=== PATIENT | male | born 1965 | race Caucasian/White ===

== ENCOUNTER 2023-09-27 13:42 | Emergency (ER) | payer MEDICAID, SELFPAY ==
[2023-09-27 13:46] VITALS: BP 154/89; PULSE 80; RESP 18; TEMP 36.9; O2SAT 97
--- NOTE | 2023-09-27 14:00 | DI.RAD_ITS ---
Exam(s) XR FOOT LT COMPLETE EXAM: XR FOOT LT COMPLETE CLINICAL HISTORY: Foot pain status post trauma. TECHNIQUE: 2D digital imaging was performed. COMPARISON: No exams were available for comparison FINDINGS: 3 views There is no evidence of fracture or diastasis of the Lisfranc joint. No radiopaque foreign bodies. Great toe metatarsophalangeal joint appears unremarkable. There are no osseous lesions and no erosio ns evident. No pes planus. Small inferior calcaneal spur noted as is an enthesophyte on the posteri or calcaneus Achilles insertion site. IMPRESSION: No acute osseous findings in the foot DATA REPOSITORY: RADIATION DOSE DELIVERED:
--- NOTE | 2023-09-27 15:05 | ED.GENADUL_ITS ---
Discharge Plan Disposition Patient Disposition: Home Discharge Details Clinical Impression: Traumatic ecchymosis of left foot Primary Care Provider: Unknown,Unknown ED Provider: Pierre Tam Home Meds and New Rx's Prescriptions: Continued levothyroxine [Euthyrox] 75 mcg tablet 75 mcg PO DAILY losartan [Cozaar] 100 mg tablet 100 mg PO DAILY citalopram 40 mg tablet 40 mg PO DAILY Ozempic 2 mg/dose (8 mg/3 mL) pen injector 0.25 mg subcut QWEEK Rx Instructions: for 4 weeks Discharge Instructions Instructions: Minor Contusion ED Additional Instructions: You are seen in the emergency department for your foot pain. Your x-ray showed no sign of any fractures. You are receiving a hard soled boot which she should wear to keep your foot time to heal. Please rest your foot for the next several days. Please ice your foot for 20 minutes on 20 minutes off while you are awake. Please return to the emergency department as we discussed if you cannot feel your foot if you cannot move your toes or if you develop any sudden worsening pain. Otherwise please follow-up with your primary care provider. If you have worsening pain you may or may not benefit from a CAT scan or an MRI which are more sensitive tests to detect for fractures. For your pain please take medications as follows: 1. Take acetaminophen (Tylenol), 1,000 mg (two 500 mg tabs) every 6 hours [2. Take ibuprofen (Advil), 400 mg every 6 hours.] Discharge Data Discharge Date/Time-TO BE ENTERED AT DEPARTURE: 09/27/23 15:21 HPI General Date/Time Provider Initiated Documentation: 09/27/23 14:10 . HPI Narrative: MDM This is an overall very well-appearing normothermic and not tachycardic 58-year-old male with left foot traumatic ecchymosis but plain films negative for any acute osseous abnormalities for which patient will receive a walking boot and empiric trial of discharge with expectant outpatient management. No pain out of proportion to suggest necrotizing soft tissue infection. No lacerations to suggest benefit from tetanus immunization. Given the patient is able to bear weight with minimal pain I did not feel that he required more sensitive test for fracture such as CT or MRI. No midfoot instability to suggest Lisfranc injury. No lateral foot tenderness to suggest Renteria fracture. No calf tenderness to suggest DVT. No erythema to suggest cellulitis. No fluctuance to suggest abscess. No warmth to suggest gouty arthritis. Good range of motion in left lower extremity so I am not suspicious for gout. Left foot warm well-perfused with less than 2-second capillary refill so I am not concerned for critical limb ischemia so I do not feel that the patient required a CT angiogram of his left lower extremity. Patient and I discussed that he should rest his foot for the next several days. I advised ice for 20 minutes on 20 minutes off while awake. I also advised elevation and a walking boot with weightbearing as tolerated. I advised that if his pain worsened or did not improve significantly by the end of the week that he should follow-up with his primary care provider as he may or may not benefit from a CT or MRI to increase sensitivity for fracture. Patient is not a diabetic so my suspicion is low for peripheral neuropathy. I advised ED return for any worsening pain any inability to move his foot or any calf tenderness which could represent a DVT. He understood his return indications. Chronic conditions affecting the care of the patient: Hypertension History obtained from an outside historian: N/A External record review: N/A Medications: Acetaminophen ibuprofen Social determinants of health affecting disposition: N/A Management discussed with: N/A Treatment/interventions considered: N/A Response to therapies provided: N/A HPI This is a 58-year-old smoker with a history of hypertension but not diabetes arrived to emergency department via private vehicle in setting of left foot pain. Patient was reportedly cleaning out his mother's house yesterday afternoon. He inadvertently dropped a mirror on his left foot while he was wearing sneakers. He had immediate pain. He has been able to walk and move his toes. He is concerned about the possibility of fracture. He denies anticoagulation. He did not fall or hit his head. He denies routine ethanol. He has not taken any oral analgesia today. Exam General: Well-appearing in no acute distress speaking in complete sentences. Head: Normocephalic, atraumatic. Eye: Extraocular eye movements intact. No conjunctival injection. No scleral icterus. Ear, nose, mouth, throat: Grossly normal inspection. Normal voice, handling secretions normally. Neck: Trachea midline. Cardiovascular: Well-perfused distal extremities. Respiratory: Nonlabored respiration. Gastrointestinal: Nondistended abdomen. Musculoskeletal: Left lower extremity with no obvious deformities. Left calf nontender. Left foot with mild diffuse ecchymosis. No lacerations. Cap refill less than 2 seconds in the left toes. 2+ left PT and DP pulses. Sensation motor function intact in the left foot with 4-5 strength in dorsi and plantarflexion limited secondarily to pain. Diffuse forefoot tenderness. No midfoot instability. No lateral foot tenderness. Photo of left foot compared to right as follows: Skin: Normal for age and race, grossly normal temperature and turgor. No acute rash. Neurologic: Alert and appropriate, no apparent acute deficits. Psychiatric: Mood and manner are appropriate. Grooming and personal hygiene are appropriate. Related Data Home Medications ?Medication ?Instructions ?Recorded ?Confirmed citalopram 40 mg tablet 40 mg PO DAILY 09/27/23 09/27/23 levothyroxine 75 mcg tablet 75 mcg PO DAILY 09/27/23 09/27/23 (Euthyrox) losartan 100 mg tablet (Cozaar) 100 mg PO DAILY 09/27/23 09/27/23 semaglutide 2 mg/dose (8 mg/3 mL) 0.25 mg subcut QWEEK 09/27/23 09/27/23 subcutaneous pen injector (Ozempic) Allergies Allergy/AdvReac Type Severity Reaction Status Date / Time No Known Allergies Allergy Unverified 09/27/23 13:48 General Stated Complaint: Orthopedic LEONIDAS: 4 Course Vital Signs Vital signs: Vital Signs Temperature 36.9 C 09/27/23 13:46 Pulse 80 09/27/23 13:46 Respiratory Rate 18 09/27/23 13:46 Blood Pressure 154/89 H 09/27/23 13:46 Pulse Oximetry 97 09/27/23 13:46 Temperature 36.9 C 09/27/23 13:46 Pulse 80 09/27/23 13:46 Respiratory Rate 18 09/27/23 13:46 Respiratory Effort Normal, Non-Labored 09/27/23 14:59 Blood Pressure 154/89 H 09/27/23 13:46 Blood Pressure Position Sitting 09/27/23 13:46 Pulse Oximetry 97 09/27/23 13:46 Oxygen Delivery Method Room Air 09/27/23 13:46 Oxygen Flow Rate 0 09/27/23 13:46 Medical Decision Making Quality:SDOH Health Related Social Needs: 2 No Data to Display PFSH All Active Problems (Updated 09/27/23 @ 15:05 by Pierre Tam MD) Traumatic ecchymosis of left foot (Acute) Social History Smoking/Tobacco Use Status: Never Smoking risk assessment performed?: Yes Alcohol Intake: never Drug use: Never Substance use type: does not use
[2023-09-27 15:21] VITALS: BP 169/82; PULSE 86; RESP 18; O2SAT 94
[2023-09-27] MEDS: Acetaminophen 500 MG TAB 1000 MG PO (15:22)
[2023-09-27] MEDS: Ibuprofen 600 MG TAB PO (15:22)
--- NOTE | 2023-10-01 15:38 | NUR.NOTE ---
Access chart to get billing information for [facility] requisitions. Nursing Note:
== END 2023-09-27 15:21 | disposition home or self-care (01) ==
PROVIDERS: Emergency Provider Emergency Medicine
DX: S90.32XA Contusion of left foot, initial encounter (principal); W22.8XXA Striking against or struck by other objects, initial encounter
CPT/HCPCS: 29515; 99283; 73630

== ENCOUNTER 2024-12-06 17:30 | Emergency (ER) | payer BC, SELFPAY ==
[2024-12-06 17:42] VITALS: BP 128/85; PULSE 76; RESP 20; TEMP 36.9; O2SAT 94
[2024-12-06 17:44] VITALS: BP 128/85; PULSE 76; RESP 20; TEMP 36.9; O2SAT 94
--- NOTE | 2024-12-06 17:50 | W.ED.GENAD ---
Discharge Plan Disposition Patient Disposition: Home Condition: Stable Discharge Details Clinical Impression: Abdominal pain of unknown cause Primary Care Provider: Tete Clark ED Provider: Fabio Harrington Home Meds and New Rx's Prescriptions: Continued levothyroxine [Euthyrox] 75 mcg tablet 75 mcg PO DAILY losartan [Cozaar] 100 mg tablet 100 mg PO DAILY citalopram 40 mg tablet 40 mg PO DAILY donepezil 5 mg tablet 5 mg PO DAILY Patient Comments: TAKE 1 TABLET BY MOUTH ONCE DAILY rosuvastatin 20 mg tablet 20 mg PO DAILY Patient Comments: TAKE 1 TABLET BY MOUTH ONCE DAILY pantoprazole 40 mg tablet,delayed release (DR/EC) 40 mg PO DAILY Patient Comments: TAKE 1 TABLET BY MOUTH ONCE DAILY FOR GERD Discharge Instructions Instructions: Abdominal Pain, Adult ED Additional Instructions: You were seen in the emergency department for your abdominal pain of unknown cause, both your CTs are negative, there is no evidence of UTI kidney stone, diverticulitis, there is no elevation white blood cells indicating infection, you do have an inguinal hernia of the left groin containing fat without bowel, please monitor your condition closely and return for any negative changes like fever, increasing abdominal pain, complete constipation and lack of passing gas or other emergent concerns like urinary retention. Referrals: Tete Clark [Primary Care Provider, Medicine] Discharge Data Discharge Date/Time-TO BE ENTERED AT DEPARTURE: 12/06/24 21:27 HPI General Date/Time Provider Initiated Documentation: 12/06/24 17:44. HPI Narrative: 59 year-old male presents to ED today by POV/ambulating with a chief complaint of L sided abdominal pain that started when he was urinating with onset today- questons some mild L flank pain, wondering if he has a kidney stone. Quality described as sharp twisting abdominal pain, no radiation to fever, urinary retention, bowel incontinence, fever, nausea/vomiting, endorses some hot flashes with pain. Severity is described as severe. Palliating factors include nothing specific attempted. Provoking factors include nothing specific. Patient not anticoagulated. Related Data Home Medications ?Medication ?Instructions ?Recorded ?Confirmed citalopram 40 mg tablet 40 mg PO DAILY 09/27/23 12/06/24 levothyroxine 75 mcg tablet 75 mcg PO DAILY 09/27/23 12/06/24 (Euthyrox) losartan 100 mg tablet (Cozaar) 100 mg PO DAILY 09/27/23 12/06/24 donepezil 5 mg tablet 5 mg PO DAILY 12/06/24 12/06/24 pantoprazole 40 mg tablet,delayed 40 mg PO DAILY 12/06/24 12/06/24 release rosuvastatin 20 mg tablet 20 mg PO DAILY 12/06/24 12/06/24 Allergies Allergy/AdvReac Type Severity Reaction Status Date / Time No Known Allergies Allergy Unverified 12/06/24 17:45 General Stated Complaint: Abd Prob LEONIDAS: 3 Review of Systems All systems reviewed & are unremarkable except as noted in HPI and below Exam Narrative Exam Narrative: GENERAL APPEARANCE: Well-nourished, non-toxic, awake and alert, atraumatic, no acute distress. SKIN: Warm, pink, dry, intact, without rashes/lesions/ulcerations. HEAD: Normocephalic, atraumatic, normal hair distribution for gender/age. EYES: Normal conjunctiva, no exudates on lids/lashes. ENT: Nares patent, no circumoral cyanosis, no facial swelling NECK: Supple, trachea midline, painless cervical ROM. LUNGS/CHEST: Lungs CTA bilaterally- no rhonchi/rales/wheezes diffusely, non-labored respirations, normal A/P diameter, symmetrical expansion, no chest wall deformity HEART (CV/PV): Regular rate and rhythm without murmur, no peripheral edema, no JVD. ABDOMEN: Soft, non-distended, no guarding, L mid-abdominal focal tenderness with rebound tenderness, L CVA tenderness to percussion MSK: Normal ROM, no swelling/deformity to bilateral UEs or LEs, moving all extremities without weakness, no cyanosis, spine midline without tenderness, normal curvature. NEURO: Mental Status AAOx4 - alert to person, place, time, events No facial droop, no forehead involvement. Motor: No focal weakness - strength 5/5 in bilateral UEs and LEs, proximal and distal, symmetric. Sensory: sensation intact to light touch globally. Gait normal: patient ambulated without ataxia into ED room. PSYCH: euthymic, cooperative, pleasant, appropriate speech Course Vital Signs Vital signs: Vital Signs Temperature 36.9 C 12/06/24 17:42 Pulse 76 12/06/24 17:42 Respiratory Rate 20 12/06/24 17:42 Blood Pressure 128/85 12/06/24 17:42 Pulse Oximetry 94 12/06/24 17:42 Temperature 36.9 C 12/06/24 17:44 Pulse 76 12/06/24 17:44 Respiratory Rate 20 12/06/24 17:44 Blood Pressure 128/85 12/06/24 17:44 Blood Pressure Position Sitting 12/06/24 17:44 Pulse Oximetry 94 12/06/24 17:44 Oxygen Delivery Method Room Air 12/06/24 17:44 Oxygen Flow Rate 0 12/06/24 17:44 Medical Decision Making This dictation utilizes [id number] dictation software and may contain unedited grammatical errors. 59 year-old male presents to ED today by POV/ambulating with a chief complaint of L sided abdominal pain that started when he was urinating with onset today- questons some mild L flank pain, wondering if he has a kidney stone. Quality described as sharp twisting abdominal pain, no radiation to fever, urinary retention, bowel incontinence, fever, nausea/vomiting, endorses some hot flashes with pain. Severity is described as severe. Palliating factors include nothing specific attempted. Provoking factors include nothing specific. Patients' medical history: Early onset dementia, hypothyroidism, hypertension, GERD, hyperlipidemia. Family and social history: Noncontributory. Pertinent exam findings / vital signs include left sided mid abdominal tenderness with rebound tenderness, no Rovsing's, left CVA tenderness to percussion, benign cardiopulmonary exam, neuro intact, nontoxic and afebrile. Differential / pathologies of concern include colitis, gastroenteritis, renal colic, diverticulitis. Diagnostic studies of: -CBC, CMP, lipase, UA, CT renal colic without, performed CT abdomen pelvis with with a negative renal study due to the patient's pain level. - CBC shows no leukocytosis, no anemia - CMP is unremarkable - Lipase negative - UA benign - CT renal colic study shows left fat-containing inguinal hernia - CT with contrast shows no overt diverticulitis, no colitis, no other emergent pathology Interventions of: -1 L IVF NS, 1 g IV Tylenol, 15 mg IVP ketorolac, 0.4 mg p.o. tamsulosin empirically, 50 mcg fentanyl every hour PRN. ED Course/Assessment/Plan: 59-year-old male presents with left-sided abdominal pain about unknown nature, his CTs both without and with contrast showed no acute pathology in this area his laboratory studies showed no concern for any infectious etiology, I am not sure if this is abdominal wall muscle strain versus gas pain but he has no evidence of any stone, I did discuss with him that he may need an ultrasound of the abdomen if he has a nonradiopaque kidney stone but he is urinating, patient was comfortable with this and he will return for any severe acute worsening, any complete constipation any severe increase in pain with fever or any other emergent concerns. Findings not consistent with diverticulitis, hydronephrosis, sepsis, perforated viscous. Disposition of Abdominal Pain of Unknown Cause. Patient verbalized understanding of the plan and return to ED criteria and engaged in shared decision making. Medical Records Medical records reviewed: Yes I reviewed the patient's medical records. Imaging Data Radiologic Study: Attestation: I personally reviewed and interpreted this imaging study as follows: Imaging: CT Scan Radiologist's impression: Exam: CT Abdomen And Pelvis Without Contrast Exam date and time: 12/06/2024 6:46 PM Age: 59 years old Clinical indication: Abdominal pain; Left; L flank pain with urination TECHNIQUE: Imaging protocol: Computed tomography of the abdomen and pelvis without contrast. Radiation optimization: All CT scans at this facility use at least one of these dose optimization techniques: automated exposure control; mA and/or kV adjustment per patient size (includes targeted exams where dose is matched to clinical indication); or iterative reconstruction. COMPARISON: No relevant prior studies available. FINDINGS: Liver: Fatty infiltration of the liver. Gallbladder and biliary ducts: Status post cholecystectomy. Pancreas: Normal. No ductal dilation. Spleen: Normal. No splenomegaly. Adrenal glands: Normal. No mass. Kidneys and ureters: Normal. No hydronephrosis. Stomach and bowel: Unremarkable. No obstruction. No mucosal thickening. Appendix: No evidence of appendicitis. Intraperitoneal space: Unremarkable. No free air. No significant fluid collection. Vasculature: Unremarkable. No abdominal aortic aneurysm. Lymph nodes: Unremarkable. No enlarged lymph nodes. Urinary bladder: Unremarkable as visualized. Reproductive: Prostatic calcifications. Bones/joints: Unremarkable. No acute fracture. Soft tissues: Left inguinal hernia. IMPRESSION: 1. Left inguinal hernia. 2. No radiopaque renal calculi or obstructive uropathy. 3. Prostatic calcifications. 4. Fatty infiltration of the liver. Dictated and Authenticated by: Irineo Dennison MD. Radiologic Study #2: Attestation: I personally reviewed and interpreted this imaging study as follows: Imaging: CT Scan Radiologist's impression: Exam: CT Abdomen And Pelvis With Contrast Exam date and time: 12/06/2024 8:32 PM Age: 59 years old Clinical indication: Abdominal pain; Localized; Left lower quadrant (llq); Llq tenderness; ? Divertic TECHNIQUE: Imaging protocol: Computed tomography of the abdomen and pelvis with contrast. Radiation optimization: All CT scans at this facility use at least one of these dose optimization techniques: automated exposure control; mA and/or kV adjustment per patient size (includes targeted exams where dose is matched to clinical indication); or iterative reconstruction. Contrast material: [id number]; Contrast volume: 100 ml; Contrast route: INTRAVENOUS (IV); COMPARISON: CT RENAL COLIC WO 12/06/2024 6:46 PM FINDINGS: Liver: Fatty infiltration of the liver. Gallbladder and biliary ducts: Normal. No calcified stones. No ductal dilation. Pancreas: Normal. No ductal dilation. Spleen: Normal. No splenomegaly. Adrenal glands: Normal. No mass. Kidneys and ureters: Normal. No hydronephrosis. Stomach and bowel: No CT evidence for diverticulitis. Appendix: No evidence of appendicitis. Intraperitoneal space: Unremarkable. No free air. No significant fluid collection. Vasculature: Unremarkable. No abdominal aortic aneurysm. Lymph nodes: Unremarkable. No enlarged lymph nodes. Urinary bladder: Unremarkable as visualized. Reproductive: Prostatic calcifications. Bones/joints: Unremarkable. No acute fracture. Soft tissues: Left inguinal hernia. IMPRESSION: 1. Fatty infiltration of the liver. 2. Left inguinal hernia. 3. Prostatic calcifications. Dictated and Authenticated by: Irineo Dennison MD. Lab Data Lab results reviewed: Yes I reviewed the patient's lab results. Labs: Laboratory Tests Range/Units 12/06/24 12/06/24 18:20 19:45 WBC (4.4-10.8) 10^3/uL 7.89 RBC (4.36-5.78) 10^6/uL 5.32 Hgb (13.5-17.5) g/dL 16.1 Hct (40.0-50.0) % 47.7 MCV (80-95) fL 90 MCH (27.0-33.0) pg 30.3 MCHC (32.0-36.0) % 33.8 RDW (11.8-14.1) % 12.8 Plt Count (130-400) 10^3/uL 220 MPV (8.0-11.0) fL 9.8 Immature Gran % % 0.8 Neutrophils % % 49.9 Lymphocytes % % 39.8 Monocytes % % 7.4 Eosinophils % % 1.5 Basophils % % 0.6 Nucleated RBC % (0.0-0.3) % 0.0 Absolute Neutrophils (1.2-6.7) 10^3/uL 3.94 Absolute Lymphocytes (1.2-3.4) 10^3/uL 3.14 Absolute Monocytes (0.1-0.8) 10^3/uL 0.58 Absolute Eosinophils (0.0-0.7) 10^3/uL 0.12 Absolute Basophils (0.0-0.2) 10^3/uL 0.05 Sodium (136-145) mmol/L 136 Potassium (3.5-5.1) mmol/L 4.5 Chloride (98-107) mmol/L 97 L Carbon Dioxide (21.0-32.0) mmol/L 27.3 Anion Gap (3-11) mmol/L 11.7 H BUN (7-18) mg/dL 13 Creatinine (0.70-1.30) mg/dL 1.1 Est GFR (CKD-EPI 2020) (mL/min/1.73m2) 77.33 Glucose (74-106) mg/dL 130 H Calcium (8.5-10.1) mg/dL 9.7 Total Bilirubin (0.2-1.0) mg/dL 0.5 AST (15-37) U/L 82 H ALT (16-63) U/L 88 H Alkaline Phosphatase (46-116) U/L 101 Total Protein (6.4-8.2) g/dL 8.6 H Albumin (3.4-5.0) g/dL 4.4 Lipase (<78) U/L 60 Urine Color (Yellow) Green Urine Clarity (Clear) Clear Urine pH (5-8) 5.5 Ur Specific Waldo (1.005-1.025) 1.025 Urine Protein (Neg-Trace) mg/dL Trace Urine Ketones (Negative) mg/dL Negative Urine Blood (Negative) Negative Urine Nitrite (Negative) Negative Urine Bilirubin (Negative) Small H Urine Urobilinogen (Up to 0.2) mg/dL 0.2 Ur Leukocyte Esterase (Negative) Negative Urine Glucose (Negative) mg/dL Negative PFSH All Active Problems (Updated 12/06/24 @ 20:59 by MARY Granger) Abdominal pain of unknown cause (Acute) Social History Smoking/Tobacco Use Status: Never Smoking risk assessment performed?: Yes Alcohol Intake: never Drug use: Never Substance use type: does not use PAWSS Have you Been Recently Intoxicated or Drunk Within the Last 30 days?: No Have you Ever Experienced Previous Episodes of Alcohol Withdrawal?: No Have you ever Experienced Withdrawal Seizures?: No Have you ever Experienced Delirium Tremens(DT)s?: No Have you ever undergone Alcohol Rehabilitation Treatment (i.e, inpt ot outpatient treatment programs)?: No Have you ever Experienced Blackouts?: No Have you ever Combined Alcohol with other Downers within the last 90 days?: No Have you ever Combined Alcohol with any other Substance of Abuse during the last 90 days?: No Positive Blood Alcohol level on Presentation? [PCS.BAL]: No Evidence of Increased Autonomic Activity (i.e. HR>120, tremor, sweating, agitation, nausea)?: No Result: 0
[2024-12-06] MEDS: Tamsulosin 0.4 MG CAPCR PO (18:27)
[2024-12-06] MEDS: Normal Saline 1,000 ML 1000 ML IV (18:28)
[2024-12-06 18:29] LABS: Abs Immature Grans 0.06 10^3/uL (0.0-0.06); HCT 47.7 % (40.0-50.0); HGB 16.1 g/dL (13.5-17.5); Immature Grans % 0.8 %; MCH 30.3 pg (27.0-33.0); MCHC 33.8 % (32.0-36.0); MCV 90 fL (80-95); MPV 9.8 fL (8.0-11.0); Platelet Count 220 10^3/uL (130-400); RBC 5.32 10^6/uL (4.36-5.78); RDW 12.8 % (11.8-14.1); RDW-SD 41.6 fL; WBC 7.89 10^3/uL (4.4-10.8)
[2024-12-06] MEDS: Ketorolac 15 MG/ML VIAL IVP (18:29)
[2024-12-06] MEDS: ACETAMINOPHEN 1,000 MG/100 ML BAG 400 MG IVPB (18:30)
[2024-12-06 18:44] LABS: ALT 88 U/L (16-63); AST 82 U/L (15-37); Albumin 4.4 g/dL (3.4-5.0); Alkaline Phosphatase 101 U/L (46-116); Anion Gap 11.7 mmol/L (3-11); BUN 13 mg/dL (7-18); Bilirubin, Total 0.5 mg/dL (0.2-1.0); CO2 27.3 mmol/L (21.0-32.0); Calcium 9.7 mg/dL (8.5-10.1); Chloride 97 mmol/L (98-107); Estimated GFR 77.33 (mL/min/1.73m2); Glucose 130 mg/dL (74-106); Lipase 60 U/L (<78); Potassium 4.5 mmol/L (3.5-5.1); Sodium 136 mmol/L (136-145); Total Protein 8.6 g/dL (6.4-8.2)
--- NOTE | 2024-12-06 18:55 | DI.CT_ITS ---
Exam(s) CT RENAL COLIC WO EXAM: CT RENAL COLIC WO CLINICAL HISTORY: L flank pain with urination. TECHNIQUE: Imaging Protocol: Axial computed tomography images with coronal and sagittal reformatted images were created and reviewed. COMPARISON: CT CT ABDOMEN PELVIS W from 12/06/2024 FINDINGS: Lung Bases: No acute findings. Liver: Severe hepatic steatosis. No measurable mass. Gallbladder and biliary tract: Cholecystectomy. No biliary ductal dilation. Pancreas: No abnormal calcifications or inflammatory process. Spleen: Normal size. Kidneys: Normal size, contour and axis.No radiodense stones or obstructive uropathy. No suspicious masses seen. Adrenal glands: No mass is seen. Lymph nodes: Within normal limits. Vasculature: Abdominal aorta non-dilated. Mild to moderate atherosclerotic calcifications along the aorta. Bladder:No stones. No gross wall thickening. No evidence of mass. Bowel: No obstruction. No bowel wall thickening. The appendix is normal. Normal quantity of stool. No significant diverticulosis. Peritoneal cavity: No ascites.No free air. No focal collection. No mesenteric inflammatory response. Reproductive organs: Within normal limits. Bones: Unremarkable for age. Soft Tissues: Left fat containing inguinal hernia IMPRESSION: No acute abnormality. Severe hepatic steatosis. No evidence of urinary tract calculi or hydronephrosis. The preliminary [facility] report was reviewed. RADIATION DOSE DELIVERED: Total DL DATA REPOSITORY: All CT scans at this facility are submitted to the National Radiology Data Registry (NRDR) Dose Index Registry (DIR) with the [employer] ([employer]). RADIATION OPTIMIZATION: All CT scans at this facility use at least one of these dose optimization techniques: automated exposure control; mA and/or kV adjustment per patient size (includes targeted exams where dose is matched to clinical indication); or iterative reconstruction.
[2024-12-06 19:52] LABS: Glucose Negative (Negative)
[2024-12-06 19:56] VITALS: BP 133/83; PULSE 69; RESP 18; O2SAT 97
--- NOTE | 2024-12-06 19:56 | DI.[facility]_ITS ---
PROCEDURE INFORMATION: Exam: CT Abdomen And Pelvis Without Contrast Exam date and time: 12/06/2024 6:46 PM Age: 59 years old Clinical indication: Abdominal pain; Left; L flank pain with urination TECHNIQUE: Imaging protocol: Computed tomography of the abdomen and pelvis without contrast. Radiation optimization: All CT scans at this facility use at least one of these dose optimization techniques: automated exposure control; mA and/or kV adjustment per patient size (includes targeted exams where dose is matched to clinical indication); or iterative reconstruction. COMPARISON: No relevant prior studies available. FINDINGS: Liver: Fatty infiltration of the liver. Gallbladder and biliary ducts: Status post cholecystectomy. Pancreas: Normal. No ductal dilation. Spleen: Normal. No splenomegaly. Adrenal glands: Normal. No mass. Kidneys and ureters: Normal. No hydronephrosis. Stomach and bowel: Unremarkable. No obstruction. No mucosal thickening. Appendix: No evidence of appendicitis. Intraperitoneal space: Unremarkable. No free air. No significant fluid collection. Vasculature: Unremarkable. No abdominal aortic aneurysm. Lymph nodes: Unremarkable. No enlarged lymph nodes. Urinary bladder: Unremarkable as visualized. Reproductive: Prostatic calcifications. Bones/joints: Unremarkable. No acute fracture. Soft tissues: Left inguinal hernia. IMPRESSION: 1. Left inguinal hernia. 2. No radiopaque renal calculi or obstructive uropathy. 3. Prostatic calcifications. 4. Fatty infiltration of the liver. Dictated and Authenticated by: Irineo Dennison MD. Orderin Len Mccarthy MD
[2024-12-06] MEDS: Omnipaque 350 MG/ML 100 ML BTL IJ (20:41)
[2024-12-06] MEDS: Normal Saline - Diluent 50 ML VIAL IJ (20:41)
[2024-12-06] MEDS: Normal Saline Flush 10 ML SYR IVP (20:43)
--- NOTE | 2024-12-06 20:44 | DI.CT_ITS ---
Exam(s) CT ABDOMEN PELVIS W EXAM: CT ABDOMEN PELVIS W CLINICAL HISTORY: LLQ tenderness; ?divertic. TECHNIQUE: Imaging Protocol: Axial computed tomography images with coronal and sagittal reformatted images were created and reviewed CONTRAST MATERIAL: Intravenous: Omnipaque 350 Contrast volume:100 ml Oral: yes no COMPARISON: CT CT RENAL COLIC WO from 12/06/2024 FINDINGS: ABDOMEN and PELVIS: Lung Bases: No acute findings. Liver: Normal severe fatty infiltration. No suspicious mass. Gallbladder and biliary tract: Cholecystectomy.. No biliary dilation. Pancreas: Normal density. No abnormal calcifications or inflammatory process. No evidence of mass. Spleen: Normal. Kidneys: Normal size, contour and axis. No radiodense stones. No obstructive uropathy. No suspicious masses seen. Adrenal glands: No masses seen. Vasculature: Abdominal aorta non-dilated. Soft tissues: Fat containing left inguinal hernia. Bladder: No gross wall thickening. No calculi.No focal mass. Bowel: No obstruction. No bowel wall thickening. Appendix normal. No evidence of diverticulitis. Peritoneal cavity: No ascites. No focal collection. No mesenteric inflammatory response. No free air. Bones: Unremarkable for age. Reproductive organs: Unremarkable. Lymph nodes: No pathologically enlarged lymph nodes. IMPRESSION:: No acute abnormality in the abdomen or pelvis. No evidence of diverticulitis. The preliminary [facility] report was reviewed. RADIATION DOSE DELIVERED: 1,051.95mGy.cm Total DLP DATA REPOSITORY: All CT scans at this facility are submitted to the National Radiology Data Registry (NRDR) Dose Index Registry (DIR) with the [employer] ([employer]). RADIATION OPTIMIZATION: All CT scans at this facility use at least one of these dose optimization techniques: automated exposure control; mA and/or kV adjustment per patient size (includes targeted exams where dose is matched to clinical indication); or iterative reconstruction.
[2024-12-06] MEDS: fentaNYL 100 MCG/2 ML VIAL 50 MCG IVP (20:48)
--- NOTE | 2024-12-06 20:53 | DI.[facility]_ITS ---
PROCEDURE INFORMATION: Exam: CT Abdomen And Pelvis With Contrast Exam date and time: 12/06/2024 8:32 PM Age: 59 years old Clinical indication: Abdominal pain; Localized; Left lower quadrant (llq); Llq tenderness; ? Divertic TECHNIQUE: Imaging protocol: Computed tomography of the abdomen and pelvis with contrast. Radiation optimization: All CT scans at this facility use at least one of these dose optimization techniques: automated exposure control; mA and/or kV adjustment per patient size (includes targeted exams where dose is matched to clinical indication); or iterative reconstruction. Contrast material: [id number]; Contrast volume: 100 ml; Contrast route: INTRAVENOUS (IV); COMPARISON: CT RENAL COLIC WO 12/06/2024 6:46 PM FINDINGS: Liver: Fatty infiltration of the liver. Gallbladder and biliary ducts: Normal. No calcified stones. No ductal dilation. Pancreas: Normal. No ductal dilation. Spleen: Normal. No splenomegaly. Adrenal glands: Normal. No mass. Kidneys and ureters: Normal. No hydronephrosis. Stomach and bowel: No CT evidence for diverticulitis. Appendix: No evidence of appendicitis. Intraperitoneal space: Unremarkable. No free air. No significant fluid collection. Vasculature: Unremarkable. No abdominal aortic aneurysm. Lymph nodes: Unremarkable. No enlarged lymph nodes. Urinary bladder: Unremarkable as visualized. Reproductive: Prostatic calcifications. Bones/joints: Unremarkable. No acute fracture. Soft tissues: Left inguinal hernia. IMPRESSION: 1. Fatty infiltration of the liver. 2. Left inguinal hernia. 3. Prostatic calcifications. Dictated and Authenticated by: Irineo Dennison MD. Orderin Len Mccarthy MD
[2024-12-06 21:11] VITALS: BP 146/83; PULSE 87; RESP 18; O2SAT 96
== END 2024-12-06 21:27 | disposition home or self-care (01) ==
PROVIDERS: Emergency Provider Physician Assistant; PCP Nurse Practitioner Family
DX: R10.9 Unspecified abdominal pain (principal)
CPT/HCPCS: 99284; 99285; 36415; 96374; 96375; 80053; 83690; 96361; 74176; 74177; 81003; 85025; J0131; J1885; J3010; J3490